=== PATIENT | male | born 1980 | race Hispanic/Latino ===

== ENCOUNTER 2025-01-17 12:59 | Outpatient (CLI) | payer OTHER | END 2025-01-17 13:00 | disposition home or self-care (01) | LOC: CSHULT 12:59 | PROVIDERS: ATTEND Chiropractor | DX: I44.2 Atrioventricular block, complete (principal); S42.201A Unspecified fracture of upper end of right humerus, initial encounter for closed fracture; S42.302A Unspecified fracture of shaft of humerus, left arm, initial encounter for closed fracture; S42.92XA Fracture of left shoulder girdle, part unspecified, initial encounter for closed fracture; B02.9 Zoster without complications | CPT/HCPCS: 93005; 93010; 93306; 94060; 94664; 94760 ==

== ENCOUNTER 2025-02-22 11:33 | Emergency (ER) | payer OTHER | END 2025-02-22 12:43 | disposition home or self-care (01) | LOC: CSHERS 11:33 | DX: F43.0 Acute stress reaction (principal); F41.9 Anxiety disorder, unspecified; F32.A Depression, unspecified | CPT/HCPCS: 93005; 99283 ==